=== PATIENT | male | born 1945 | race Caucasian/White ===

== ENCOUNTER 2018-03-09 09:44 | Observation (INO) | payer MEDICARE ==
--- NOTE | 2018-03-09 11:00 | PDOC.FPRHP ---
- History of Present Illness Chief Complaint: syncope, CP, SOB History of Present Illness: 72 yo M w/ PMH of Parkinson's, HLD and previous dx of HTN and DMII presentes for evaluation of syncopal episode at home. Pt reports last evening he was "not feeling well" and urinating frequently. He had associated SOB and some intermittent left sided chest pain w/o radiation. Reports he went to the restroom and the next thing he recalls was waking up on the bathroom floor. Denies loss of bowel or bladder function. Does report he has had some expressive aphasia since the episode and he was repeatedly telling his "we need to go home" after the incident although they were already at home. He denies fever, chills, cough, pleurisy, nvdc, recurrent dizziness/ lightheadedness and changes in vision, denies weakness, numbness and tingling. Of note, pt recently had an MRI at the [facility] in [place] which showed a history of "mini-strokes." He currently denies cp, sob and any focal neuro deficit. ED Course: 81mg aspirin x4 - Allergies/Adverse Reactions Allergies Allergy/AdvReac Type Severity Reaction Status Date / Time No Known Allergies Allergy Verified 03/09/18 16:02 - Home Medications Medication Instructions Recorded Confirmed Type Aspirin [Aspir-Low] 81 mg PO DAILY 03/09/18 03/09/18 History Carbidopa/Levodopa 2 tablet PO QID 03/09/18 03/09/18 History [Carbidopa-Levodopa 10-100 Tab] Cyanocobalamin (Vitamin B-12) 2,500 mcg PO Q7DAYS 03/09/18 03/09/18 History [Vitamin B12] Entacapone 200 mg PO QID 03/09/18 03/09/18 History Melatonin 5 mg PO DAILY 03/09/18 03/09/18 History Omeprazole 20 mg PO DAILY 03/09/18 03/09/18 History PARoxetine Mesylate [Pexeva] 40 mg PO DAILY 03/09/18 03/09/18 History Selegiline HCl [Eldepryl] 5 mg PO BID 03/09/18 03/09/18 History Simvastatin 40 mg PO HS 03/09/18 03/09/18 History Tamsulosin HCl [Flomax] 0.4 mg PO HS 03/09/18 03/09/18 History - History PMHx: Parkinsons, HLD, BPH, prior DMII, HTN PSHx: None FHx: Denies CV disease in parents and siblings Social: Denies alcohol, tobacco and drug use - Review of Systems General: denies: fever/chills, weight/appetite/sleep changes Eyes: reports: vision changes. denies: eye pain ENT: denies: nasal congestion, rhinorrhea Respiratory: reports: shortness of breath. denies: cough, congestion, exercise intolerance Cardiovascular: reports: chest pain, edema. denies: palpitation, paroxysmal nocturnal dyspnea, orthopnea Gastrointestinal: denies: nausea, vomiting, diarrhea, constipation, abdominal pain Genitourinary: reports: polyuria. denies: incontinence, dysuria Skin: denies: rashes, lesions Musculoskeletal: denies: pain, tenderness, arthritis/arthralgias Neurological: reports: syncope. denies: numbness, seizure, weakness Psychological: denies: anxiety - Vital signs BP: 124/92 HR: 76 RR: 16 Tmax: 98.4 Pox: 99% on RA Wt: 89Kg - Physical Exam Constitutional: NAD, awake, alert and oriented HEENT: normocephalic and atraumatic, PERRLA, no scleral icterus, grossly normal vision, grossly normal hearing, MMM, oropharynx clear Neck: supple, FROM, trachea midline, no LAD, no JVD, no thyromegaly Chest: no-tender to palpation Heart: RRR, normal S1/S2, no murmurs/rubs/gallops, pulses present, no edema Lungs: CTAB, no respiratory distress, good air movement, no rales/rhonchi, no wheezing, no retractions Abdomen: soft, non-tender, bowel sounds present, no masses/distention, no hernias Musculoskeletal: normal structure, normal tone, ROM grossly normal Neurological: no focal deficit, CN II-XII intact, normal sensation -Neurological: delayed speech w/ mild expressive aphasia Skin: no rash/lesions, good turgor, capillary refill <2 seconds Heme/Lymphatic: no unusual bruising or bleeding, no purpura Psychiatric: normal mood and affect FMR H&P: Results - EKG Interpretation EKG: NSR rate 72 - Radiology Interpretation Chest x-ray Status: report reviewed by me (Rt pleural effusion w/ bibasilar opacities) FMR H&P: A/P - Problem List (1) Syncope Current Visit: Yes Status: Acute Code(s): R55 - SYNCOPE AND COLLAPSE Assessment and Plan: (2) Atypical chest pain Current Visit: Yes Status: Acute Code(s): R07.89 - OTHER CHEST PAIN (3) Polyuria Current Visit: Yes Status: Acute Code(s): R35.8 - OTHER POLYURIA (4) Hypokalemia Current Visit: Yes Status: Acute Code(s): E87.6 - HYPOKALEMIA (5) HLD (hyperlipidemia) Current Visit: Yes Status: Acute Code(s): E78.5 - HYPERLIPIDEMIA, UNSPECIFIED (6) Parkinson disease Current Visit: Yes Status: Acute Code(s): G20 - PARKINSON'S DISEASE (7) BPH (benign prostatic hyperplasia) Current Visit: Yes Status: Acute Code(s): N40.0 - BENIGN PROSTATIC HYPERPLASIA WITHOUT LOWER URINRY TRACT SYMP - Plan 1) Syncope: - Admit tele - Given new report of difficulty "finding words" and delayed speech pattern, will get non con ct head and if negative for intracranial bleed get cta head and neck, currently no focal deficits aside from speech pattern - with subjective h/o "mini-strokes" on previous imaging will monitor on tele, possibility of paroxysmal fib/flutter causing syncopal episodes - am stress and echo - check mag, tsh, replace K+ - lovenox if negative 2) Atypical chest pain: - trend troponins X3 - initial EKG and cardiacs negative - will monitor on tele - am stress and echo - NPO @ midnight 3) Expressive aphasia: - given syncopal episode and new onset, will order head/neck imaging 4) Polyuria - given h/o BPH and syncopal, will check UA to r/o UTI 5)Hypokalemia: -replace, check mag 6) HLD: - continue statin 7) BPH: - resume home meds 8) Parkinson's -home meds Dispo: Stable, will obs and continue initial workup. PCP: City call admission Disposition/LOS: stable, </= 2 days FMR H&P: Upper Level - Plan Date/Time: 03/09/18 1055 I, [], have evaluated this patient and agree with findings/plan as outlined by event marketing intern resident. Pertinent changes/additions are listed here. Attending Addendum - Attending Addendum Date/Time: 03/09/182006 I personally evaluated the patient at 1645 and discussed the management with Dr. Corbett. H&P repeated by me. I agree with the History, Examination, Assessment and Plan documented above with any addition or exceptions noted below. 72 y/o WM with PMH parkinson's, HLD, diet controlled DM and HTN, and BPH who presented after he had a syncopal event overnight. Per his report he had to go urinate every 15-30 minutes overnight and progressively because more weak and "dizzy". He describes the dizziness as balance issue and closing in. No vertigo. He then fell with this syncopal event. States he was only out a few seconds. Denied palpatations, headache, loss of bowel or bladder. He did endorse some left sided chest pressure with associated shortness of breath. No radiation. Per review of records, his states he was struggling to find words and a little confused so they went to ER. At this time I am seeing him he feels well without complaint and asking to go home. VSS Neck: no carotid bruits Heart: normal s1/s2 no m,g,r Lungs: ctab Ext: no c/c/e Neuro: fluent and appropriate speech. No focal neuro deficits. Labs and imaging reports reviewed. 1) Syncope- obs to tele. Stress completed and negative. Continue tele to r/o arrythmia. No sign of CVA on CT scan and no focal neuro deficits. Continue ASA and statin daily. ECHO ordered and pending 2) 50% R carotid stenosis- this does not appear to be the source of his dizziness. Will need serial o/p follow-up 3) HLD- check FLP 4) BPH- continue home meds
[2018-03-09 11:31] LABS: Troponin I 0.011 ng/mL (< 0.028)
[2018-03-09] MEDS ORDERED: Acetaminophen 325 MG TAB PO PRN (11:34)
[2018-03-09] MEDS ORDERED: Ondansetron ODT 4 MG TAB PO PRN (11:34)
[2018-03-09] MEDS ORDERED: Bisacodyl 5 MG TAB PO PRN (11:34)
[2018-03-09] MEDS ORDERED: Ondansetron HCl/PF 4 MG/2 ML Vial IVP PRN (11:34)
[2018-03-09] MEDS ORDERED: hydrALAZINE 20 MG/ML VIAL SLOW IVP PRN (11:35)
[2018-03-09] MEDS ORDERED: Nitroglycerin 0.4 MG TAB (25 Tab Bottle) PO PRN (11:35)
--- NOTE | 2018-03-09 11:51 | CT ---
CT OF HEAD NONCONTRAST: Indication: Pain. FINDINGS: There is ventriculomegaly, mass effect, midline shift, or acute intracranial hemorrhage. Mild chronic ischemic disease is present. Imaged paranasal sinuses reveal no fluid levels. IMPRESSION: No acute intracranial abnormality. POS: [facility]
[2018-03-09] MEDS ORDERED: Potassium Chloride 20 MEQ TAB PO SCH ×2 (12:00→16:30)
--- NOTE | 2018-03-09 12:50 | CT ---
CT ARTERIOGRAM NECK WITH IV CONTRAST AND 3D MIP IMAGING CT ARTERIOGRAM HEAD WITH IV CONTRAST AND 3D MIP IMAGING: History: Syncope. Aphasia. FINDINGS: Normal branching of the great vessels at the aortic arch with mild arterial calcification. Good flow into each carotid and vertebral system. At the right carotid bifurcation, there is thick calcification and a short segment focus of approxima tely 50% stenosis at the origin of the ICA. Good flow more distally. On the left mild calcification at the aortic bifurcation without significant stenosis. [place] of [place] is intact. Arterial calcification intracranially. No focal filling defect or aneurys m. IMPRESSION: Atherosclerosis. Focal areas of approximately 50% stenosis at the origin of the right internal caroti d artery. No acute intracranial abnormalities are demonstrated. POS: [facility]
[2018-03-09] MEDS ORDERED: Iopamidol-M 200 41% 20 ML VIAL ONE (12:57)
[2018-03-09] MEDS ORDERED: ADENOSINE 60 MG/20 ML VIAL ONE (13:08)
[2018-03-09 15:31] LABS: Troponin I Less than 0.010 ng/mL (< 0.028)
[2018-03-09 15:47] VITALS: BMI 28.8
[2018-03-09] MEDS: Carbidopa/Levodopa 10-100 mg Tablet PO SCH ×3 (16:23→21:46)
--- NOTE | 2018-03-09 17:53 | NM ---
CARDIAC SPECT: CLINICAL HISTORY: 72-year-old male with chest pain, hypertension, smoker. TECHNIQUE: A myocardial perfusion scan was performed using the single isotope one day protocol with technetium-9 9m sestamibi. 11 mCi were injected intravenously for the rest exam followed by 31 mCi for the stress exam. Pharmacologic stress with Adenosine was monitored and interpreted by Dr. Phillip. FINDINGS: Homogeneous tracer distribution is seen in the myocardial segments on stress and rest images without fixed or reversible defects. GATED SPECT LVEF: 57%. WALL MOTION EXAM: Normal. IMPRESSION: Normal myocardial perfusion scan. POS: [facility]
[2018-03-09] MEDS ORDERED: Melatonin 3 MG TAB PO SCH (21:00)
[2018-03-09] MEDS ORDERED: Atorvastatin Calcium 20 MG TAB PO SCH (21:00)
[2018-03-09 22:13] LABS: Bilirubin Negative (Negative); Blood, Urine Negative (Negative); Clarity CLEAR (Clear); Glucose, Urine (Dipstick) Negative (Negative); Leukocyte Negative (Negative); Nitrite Negative (Negative); Protein, Urine (Dipstick) Negative (Neg-Trace); Specific Gravity, Urine 1.009 (1.002-1.036); Urobilinogen 0.2 mg/dL (0.2-1.0)
[2018-03-09 22:16] LABS: Bacteria/HPF None Seen HPF (None Seen); Hyaline Casts/LPF 0-3 HYALINE CAST LPF (0-3 Hyaline); RBC/HPF 0-3 HPF (0-3); Squamous Epithelial None Seen HPF (0-3); WBC/HPF None Seen HPF (0-3)
[2018-03-10 04:27] LABS: #Eosinphils 0.1 thou/uL (0.0-0.7); #Monocytes 0.6 thou/uL (0.11-0.59); #Neutrophils 3.4 thou/uL (1.40-6.50); %Basophils 0.6 % (0.0-1.0); %Lymphocytes 32.7 % (21.0-51.0); %Monocytes 9.6 % (0.0-10.0); %Neutrophils 55.1 % (42.0-75.0); Hemoglobin 12.4 g/dL (14.0-18.0); Mean Corpuscular HGB CONC 33.7 g/dL (32.0-36.0); Mean Corpuscular Hemoglobin 32.2 pg (27.0-31.0); Mean Corpuscular Volume 95.6 fL (78.0-98.0); Mean Platelet Volume 7.6 fL (7.4-10.4); Platelet Count 169 thou/uL (130-400); RBC Distribution Width 11.6 % (11.5-14.5); Red Blood Cell (RBC) Count 3.83 mill/uL (4.70-6.10); White Blood Cell (WBC) Count 6.1 thou/uL (4.8-10.8)
[2018-03-10 04:53] LABS: Anion Gap 12 mmol/L (10-20); BUN (Urea Nitrogen) 12 mg/dL (8.4-25.7); Calc. Creatinine Clearance 74 mL/min (70-130); Calcium 9.5 mg/dL (7.8-10.44); Carbon Dioxide 22 mmol/L (23-31); Cardiac Risk 2.7 (Less than 4.5); Chloride 108 mmol/L (98-107); Cholesterol 123 mg/dl (< 200 Desired); Estimated GFR-MDRD 62; Glucose 108 mg/dL (83-110); HDL Cholesterol 45 mg/dL (>60 Neg Risk); LDL Cholesterol, Calculated 60 mg/dL; Potassium 4.1 mmol/L (3.5-5.1); Sodium 138 mmol/L (136-145); Triglycerides 92 mg/dL (Less than 150)
--- NOTE | 2018-03-10 07:23 | PDOC.FM ---
- Subjective Subjective: No acute events overnight. Pt reports resolution of SOB. Denies CP. No syncopal episodes overnight. - Objective Vital Signs & Weight: Vital Signs (12 hours) Temp Pulse Resp BP Pulse Ox 03/10/18 03:02 97.6 F 66 20 137/79 97 03/09/18 23:20 97.9 F 68 20 125/67 94 L 03/09/18 20:01 99.3 F 72 20 03/09/18 19:56 99.3 F 72 20 145/75 H 96 Weight Weight 91.172 kg I&O: 03/09/18 03/10/18 03/11/18 06:59 06:59 06:59 Intake Total 600 Output Total 600 Balance 0 Result Diagrams: 03/10/18 04:12 03/10/18 04:12 <William Corbett - Last Filed: 03/10/18 07:20> - Objective Vital Signs & Weight: Vital Signs (12 hours) Temp Pulse Resp BP Pulse Ox 03/10/18 07:58 98.5 F 70 20 179/89 H 96 03/10/18 03:02 97.6 F 66 20 137/79 97 03/09/18 23:20 97.9 F 68 20 125/67 94 L Weight Weight 91.172 kg I&O: 03/09/18 03/10/18 03/11/18 06:59 06:59 06:59 Intake Total 600 Output Total 600 Balance 0 Result Diagrams: 03/10/18 04:12 03/10/18 04:12 <Miguel Angel Reaves - Last Filed: 03/10/18 09:39> Phys Exam - Physical Examination Constitutional: NAD HEENT: PERRLA, sclera anicteric Neck: no nodes, no JVD Respiratory: no wheezing, no rales, no rhonchi, clear to auscultation bilateral Cardiovascular: RRR, no significant murmur, no rub Gastrointestinal: soft, non-tender, no distention, positive bowel sounds Musculoskeletal: no edema, pulses present Neurological: non-focal, moves all 4 limbs <William Corbett - Last Filed: 03/10/18 07:20> Dx/Plan (1) Syncope Code(s): R55 - SYNCOPE AND COLLAPSE Status: Acute (2) Atypical chest pain Code(s): R07.89 - OTHER CHEST PAIN Status: Acute (3) Polyuria Code(s): R35.8 - OTHER POLYURIA Status: Acute (4) Hypokalemia Code(s): E87.6 - HYPOKALEMIA Status: Acute (5) HLD (hyperlipidemia) Code(s): E78.5 - HYPERLIPIDEMIA, UNSPECIFIED Status: Acute (6) Parkinson disease Code(s): G20 - PARKINSON'S DISEASE Status: Acute (7) BPH (benign prostatic hyperplasia) Code(s): N40.0 - BENIGN PROSTATIC HYPERPLASIA WITHOUT LOWER URINRY TRACT SYMP Status: Acute - Plan Plan: 1) Syncope: - neg ct head and neck - echo pending - 50% stenosis rt ICA, recommend OP f/u. Do not believe this to be cause of syncope - NSR on tele overnight - med side effect vs vasovagal vs cardiogenic vs neurogenic - erwin stable for DC to home today pending echo 2) Atypical chest pain: - toponins negative - echo pending - negative stress 3) Expressive aphasia: resolved - likely stable for dc to home today 4) Polyuria - UA negative - stable for dc to home 5)Hypokalemia: -replace, check mag - resolved 6) HLD: - continue statin 7) BPH: - resume home meds 8) Parkinson's -home meds Dispo: Erwin stable for DC to home today pending Echo. Otherwise stable and workup negative thus far. <William Corbett - Last Filed: 03/10/18 07:20> Attending Addendum - Attending Addendum Date/Time: 03/10/1837 I personally evaluated the patient and discussed the management with Dr. Corbett. I agree with the History, Examination, Assessment and Plan documented above with any addition or exceptions noted below. Patient doing well and feels at baseline. His cardiovascular workup for cause of syncope has been negative thus far and no events on telemetry. Will check orthostatics, but currently asymptomatic. Echo pending. His parkinsonian medications can cause symptoms similar to what he is experiencing and will recommend that he follow up and discuss with neurology if his workup finalizes as negative. Should be stable for discharge later today after obtaining TTE. <Miguel Angel Reaves - Last Filed: 03/10/18 09:39>
[2018-03-10 07:59] VITALS: TEMP 98.5
[2018-03-10] MEDS: Carbidopa/Levodopa 10-100 mg Tablet PO SCH (08:07)
[2018-03-10] MEDS ORDERED: Entacapone 200 mg Tablet PO SCH (09:00)
[2018-03-10] MEDS ORDERED: Enoxaparin Sodium 40 MG/0.4 ML SYRINGE SC SCH (09:00)
[2018-03-10] MEDS ORDERED: Finasteride 5 MG TAB PO SCH (09:00)
[2018-03-10] MEDS ORDERED: Aspirin 325 MG TAB PO SCH (09:00)
[2018-03-10] MEDS ORDERED: PAROXETINE MESYLATE PO SCH (09:00)
--- NOTE | 2018-03-10 10:45 | CT ---
CT ARTERIOGRAM NECK WITH IV CONTRAST AND 3D MIP IMAGING CT ARTERIOGRAM HEAD WITH IV CONTRAST AND 3D MIP IMAGING: History: Syncope. Aphasia. FINDINGS: Normal branching of the great vessels at the aortic arch with mild arterial calcification. Good flow into each carotid and vertebral system. At the right carotid bifurcation, there is thick calcification and a short segment focus of approxima tely 50% stenosis at the origin of the ICA. Good flow more distally. On the left mild calcification at the aortic bifurcation without significant stenosis. [place] of [place] is intact. Arterial calcification intracranially. No focal filling defect or aneurys m. IMPRESSION: Atherosclerosis. Focal areas of approximately 50% stenosis at the origin of the right internal caroti d artery. No acute intracranial abnormalities are demonstrated.
[2018-03-10 11:32] VITALS: BP 131/77
--- NOTE | 2018-03-11 12:53 | DIS-2 ---
DATE OF SERVICE: 03/10/2018 LOCATION: [facility] in [place], [place]. DATE OF ADMISSION: 03/09/2018 DATE OF DISCHARGE: 03/10/2018 RESIDENT PHYSICIAN: Dr. William Corbett. ADMITTING ATTENDING: Dr. Nancy Damon. DISCHARGE ATTENDING: Dr. Miguel Angel Reaves. CONSULTATIONS: None. PROCEDURES: 1. Brain CT done on 03/09/2018 showed no acute intracranial abnormality. 2. CT angiogram of the brain showed atherosclerosis. Focal areas are approximately 50% stenosis at the origin of the right internal carotid artery. No acute intracranial abnormalities are demonstrate d. 3. Echocardiogram done on 03/10/2018 showed an EF of 50% to 55%, mildly dilated left atrium, left ve ntricular size normal, mild mitral regurgitation and mild tricuspid regurgitation. PRIMARY DIAGNOSES: 1. Syncope. 2. Atypical chest pain. SECONDARY DIAGNOSES: 1. Polyuria. 2. Benign prostatic hypertrophy. 3. Hyperlipidemia. 4. Parkinson disease. DISCHARGE MEDICATIONS: 1. Aspirin 81 mg daily. 2. Carbidopa/levodopa 10-100 mg 2 tablets p.o. q.i.d. 3. Vitamin B12 of 2500 mcg p.o. daily. 4. Entacapone 200 mg p.o. q.i.d. 5. Melatonin 5 mg p.o. daily. 6. Omeprazole 20 mg p.o. daily. 7. Paroxetine 40 mg p.o. daily. 8. Selegiline 5 mg p.o. b.i.d. 9. Simvastatin 40 mg p.o. at bedtime. 10. Flomax 0.4 mg p.o. at bedtime. DISCONTINUED MEDICATIONS: None. HISTORY OF PRESENT ILLNESS AND HOSPITAL COURSE: The patient is a 72-year-old male with past medical history of Parkinson's disease, hypertension, hyperlipidemia, BPH, who initially presented to an [facility] ED after experiencing a syncopal episode with unknown downtime. The patient reports that his wif e was helping him after and she reported that he was not making any sense and additionally, the patie nt complained of difficulty finding words after the initial syncopal episode. He denied any loss of bowel or bladder function and at the time of initial presentation denied any focal motor deficits; ho wever, he did report some expressive aphasia. Because of this and the unknown downtime in addition t o the altered mental status after initial syncopal episode, brain imaging was performed which did not show any acute abnormality. The patient's cardiac enzymes were additionally trended and those were negative throughout his hospitalization. His laboratory results were all within normal limits except for hemoglobin which was 12.4, hematocrit 36.6. Urinalysis was done as well secondary to patient's complaint of polyuria; however, urinalysis was negative for any signs or symptoms of infection. Ulti heatherly, the patient was admitted for a syncopal episode and worked up for both cardiogenic and neurog enic sources, all of which were negative. It was noted that the patient is on maximum dose of both e ntacapone and carbidopa/levodopa and this was thought to be a possible cause of his syncopal episode. The patient was instructed to discuss additional medical management with his PCP and neurologist fo llowing discharge from the hospital. Overall, the patient had an uncomplicated hospital course and b y the time he arrived to the ED, his symptoms had completely resolved. DISPOSITION: The patient left the hospital in stable condition. DISCHARGE INSTRUCTIONS: 1. Location: Home. 2. Diet: Heart healthy. 3. Activity: Ad marco. 4. Followup: Follow up with primary care provider in 7-10 days. Follow up with Neurology in 2-3 we eks following discharge.
[2018-03-16] MEDS ORDERED: Ergocalciferol 1.25 MG(50,000 UNITS) CAP PO SCH (09:00)
== END 2018-03-10 14:00 | disposition home or self-care (01) ==
LOC: ERS 09:44 → 2SE 10:30
PROVIDERS: ADMIT Student in an Organized Health Care Education/Training Program; ATTEND Student in an Organized Health Care Education/Training Program
DX: R55 Syncope and collapse (principal); R07.89 Other chest pain; N40.1 Benign prostatic hyperplasia with lower urinary tract symptoms; R35.8 Other polyuria; E78.5 Hyperlipidemia, unspecified; G20 Parkinson's disease; I10 Essential (primary) hypertension; E11.9 Type 2 diabetes mellitus without complications; E87.6 Hypokalemia; Z79.82 Long term (current) use of aspirin; Z79.899 Other long term (current) drug therapy
CPT/HCPCS: 70450; 70496; 70498; 78452; 80048; 80061; 81001; 82962 ×2; 83735; 84443; 84484; 85025; 93017; 93306; 94760 ×2; 96372; 97139 ×3; 99285; A9500; G0378 ×2; G8987; G8988; G8989; 36415; 36416; G9162-GN-CI; G9163-GN-CI; J0153

== ENCOUNTER 2022-07-16 22:24 | Inpatient (IN) | payer MEDICARE, OTHER ==
[2022-07-17] MEDS ORDERED: niCARdipine 25 MG/10 ML VIAL ONE (00:28)
[2022-07-17] MEDS ORDERED: Ondansetron PF 4 MG/2 ML Vial IVP PRN (00:54)
[2022-07-17] MEDS ORDERED: Lisinopril 10 MG TAB PO SCH (01:00)
[2022-07-17] MEDS ORDERED: niCARdipine 25 MG in Sodium Chloride 0.9% 250 ML 250 ML IVPB SCH (01:00)
[2022-07-17] MEDS ORDERED: Lisinopril 10 MG TAB ONE ×2 (01:17→09:13)
[2022-07-17 01:46] LABS: SARS-CoV-2 NAA Rapid Test Not Detected (NotDetected)
[2022-07-17] MEDS ORDERED: Polyethylene Glycol 3350 17 GM Packet PO PRN (07:57)
[2022-07-17 07:59] LABS: #Lymphocytes 1.5 thou/uL (1.20-3.40); #Monocytes 0.8 thou/uL (0.11-0.59); #Neutrophils 5.3 thou/uL (1.40-6.50); %Basophils 0.2 % (0.0-1.0); %Eosinophils 0.5 % (0.0-10.0); %Lymphocytes 19.7 % (21.0-51.0); %Monocytes 10.1 % (0.0-10.0); %Neutrophils 69.4 % (42.0-75.0); Hemoglobin 12.3 g/dL (14.0-18.0); Mean Corpuscular HGB CONC 31.4 g/dL (32.0-36.0); Mean Corpuscular Hemoglobin 29.8 pg (27.0-31.0); Mean Corpuscular Volume 94.9 fl (78.0-98.0); Mean Platelet Volume 7.9 fL (7.4-10.4); Platelet Count 238 10x3/uL (130-400); RBC Distribution Width 12.8 % (11.5-14.5); Red Blood Cell (RBC) Count 4.13 mill/uL (4.70-6.10); White Blood Cell (WBC) Count 7.6 10x3/uL (4.8-10.8)
[2022-07-17 08:19] LABS: Anion Gap 14 mmol/L (10-20); BUN (Urea Nitrogen) 16 mg/dL (8.4-25.7); Calc. Creatinine Clearance 0 mL/min (70-130); Calcium 9.6 mg/dL (7.8-10.44); Carbon Dioxide 26 mmol/L (23-31); Chloride 101 mmol/L (98-107); Estimated GFR 75; Glucose 120 mg/dL (83-110); Potassium 3.9 mmol/L (3.5-5.1); Sodium 137 mmol/L (136-145)
[2022-07-17] MEDS ORDERED: Carbidopa/Levodopa 10-100 mg Tablet PO SCH (09:00)
[2022-07-17] MEDS: Carbidopa/Levodopa 10-100 mg Tablet PO SCH ×4 (09:05→21:52)
[2022-07-17] MEDS: Finasteride 5 MG TAB PO SCH (09:06)
[2022-07-17] MEDS ORDERED: Aspirin Chewable 81 MG TAB ONE (09:13)
[2022-07-17] MEDS: Aspirin 81 mg Enteric Coated Tablet PO SCH (09:36)
[2022-07-17] MEDS: Cyanocobalamin (Vitamin B-12) 1,000 MCG TAB PO SCH (09:37)
[2022-07-17] MEDS: Entacapone 200 mg Tablet PO SCH ×4 (09:37→21:52)
[2022-07-17] MEDS: Lisinopril 10 MG TAB PO SCH (09:38)
[2022-07-17] MEDS: PARoxetine 20 MG TAB PO SCH (09:40)
[2022-07-17] MEDS ORDERED: traMADol HCl 50 MG TAB PO PRN (11:06)
[2022-07-17] MEDS ORDERED: Fleet Enema 133 ML BOT PR SCH (13:00)
[2022-07-17] MEDS ORDERED: Amlodipine 5 MG TAB PO SCH (13:04)
[2022-07-17 17:01] VITALS: BMI 22.6
[2022-07-17] MEDS ORDERED: Atorvastatin Calcium 10 MG TAB PO SCH (21:00)
[2022-07-17] MEDS: Atorvastatin Calcium 20 MG TAB PO SCH (21:52)
[2022-07-17] MEDS: Tamsulosin HCl 0.4 MG CAP PO SCH (21:52)
[2022-07-18 04:31] LABS: #Eosinphils 0.1 thou/uL (0.0-0.7); #Lymphocytes 1.7 thou/uL (1.20-3.40); #Neutrophils 5.9 thou/uL (1.40-6.50); %Basophils 0.6 % (0.0-1.0); %Eosinophils 0.7 % (0.0-10.0); %Monocytes 11.1 % (0.0-10.0); %Neutrophils 67.7 % (42.0-75.0); Hemoglobin 12.1 g/dL (14.0-18.0); Mean Corpuscular HGB CONC 32.4 g/dL (32.0-36.0); Mean Corpuscular Hemoglobin 31.1 pg (27.0-31.0); Mean Platelet Volume 7.8 fL (7.4-10.4); Platelet Count 236 10x3/uL (130-400); RBC Distribution Width 12.8 % (11.5-14.5); White Blood Cell (WBC) Count 8.7 10x3/uL (4.8-10.8)
[2022-07-18 04:55] LABS: Anion Gap 11 mmol/L (10-20); BUN (Urea Nitrogen) 25 mg/dL (8.4-25.7); Calc. Creatinine Clearance 51 mL/min (70-130); Calcium 9.1 mg/dL (7.8-10.44); Carbon Dioxide 28 mmol/L (23-31); Chloride 101 mmol/L (98-107); Estimated GFR 60; Glucose 121 mg/dL (83-110); Potassium 3.6 mmol/L (3.5-5.1); Sodium 136 mmol/L (136-145)
[2022-07-18] MEDS: Carbidopa/Levodopa 10-100 mg Tablet PO SCH ×4 (09:58→20:42)
[2022-07-18] MEDS: Aspirin 81 mg Enteric Coated Tablet PO SCH (09:59)
[2022-07-18] MEDS: Entacapone 200 mg Tablet PO SCH ×4 (09:59→20:41)
[2022-07-18] MEDS: Amlodipine 5 MG TAB PO SCH (10:00)
[2022-07-18] MEDS: Lisinopril 10 MG TAB PO SCH (10:01)
[2022-07-18] MEDS: PARoxetine 20 MG TAB PO SCH (10:02)
[2022-07-18] MEDS: Finasteride 5 MG TAB PO SCH (10:03)
[2022-07-18] MEDS ORDERED: CEFAZOLIN 2 GM in Sodium Chloride 0.9% 100 ML IVPB SCH (11:00)
[2022-07-18] MEDS ORDERED: Enoxaparin Sodium 40 MG/0.4 ML SYRINGE SC SCH (12:00)
[2022-07-18] MEDS ORDERED: hydrALAZINE 25 MG TAB PO SCH (12:15)
[2022-07-18] MEDS: Tamsulosin HCl 0.4 MG CAP PO SCH (20:41)
[2022-07-18] MEDS: Acetaminophen 325 MG TAB PO PRN (20:42)
[2022-07-18] MEDS: Atorvastatin Calcium 20 MG TAB PO SCH (20:42)
[2022-07-18] MEDS: hydrALAZINE 25 MG TAB PO SCH (20:42)
[2022-07-19] MEDS: PARoxetine 20 MG TAB PO SCH (08:50)
[2022-07-19] MEDS: Entacapone 200 mg Tablet PO SCH ×4 (08:50→20:13)
[2022-07-19] MEDS: Amlodipine 5 MG TAB PO SCH (08:50)
[2022-07-19] MEDS: Aspirin 81 mg Enteric Coated Tablet PO SCH (08:50)
[2022-07-19] MEDS: Lisinopril 10 MG TAB PO SCH (08:51)
[2022-07-19] MEDS: Finasteride 5 MG TAB PO SCH (08:51)
[2022-07-19] MEDS: hydrALAZINE 25 MG TAB PO SCH ×2 (08:52→21:02)
[2022-07-19] MEDS: Carbidopa/Levodopa 10-100 mg Tablet PO SCH ×4 (08:53→20:18)
[2022-07-19] MEDS ORDERED: Enoxaparin Sodium 40 MG/0.4 ML SYRINGE SC SCH ×2 (09:00→11:30)
[2022-07-19 10:04] LABS: #Eosinphils 0.1 thou/uL (0.0-0.7); #Lymphocytes 1.6 thou/uL (1.20-3.40); #Monocytes 0.6 thou/uL (0.11-0.59); #Neutrophils 4.1 thou/uL (1.40-6.50); %Basophils 0.1 % (0.0-1.0); %Eosinophils 1.2 % (0.0-10.0); %Lymphocytes 25.6 % (21.0-51.0); %Neutrophils 63.1 % (42.0-75.0); Hemoglobin 12.3 g/dL (14.0-18.0); Mean Corpuscular HGB CONC 32.4 g/dL (32.0-36.0); Mean Corpuscular Hemoglobin 31.1 pg (27.0-31.0); Mean Platelet Volume 7.9 fL (7.4-10.4); Platelet Count 203 10x3/uL (130-400); Red Blood Cell (RBC) Count 3.95 mill/uL (4.70-6.10); White Blood Cell (WBC) Count 6.4 10x3/uL (4.8-10.8)
[2022-07-19 10:39] LABS: Anion Gap 11 mmol/L (10-20); BUN (Urea Nitrogen) 23 mg/dL (8.4-25.7); Calc. Creatinine Clearance 58 mL/min (70-130); Calcium 9.1 mg/dL (7.8-10.44); Carbon Dioxide 26 mmol/L (23-31); Chloride 102 mmol/L (98-107); Estimated GFR 70; Glucose 146 mg/dL (83-110); Potassium 4.1 mmol/L (3.5-5.1); Sodium 135 mmol/L (136-145)
[2022-07-19] MEDS ORDERED: Fleet Enema 133 ML BOT PR SCH (11:15)
[2022-07-19] MEDS: Atorvastatin Calcium 20 MG TAB PO SCH (20:12)
[2022-07-19] MEDS: Acetaminophen 325 MG TAB PO PRN (20:12)
[2022-07-19] MEDS: Tamsulosin HCl 0.4 MG CAP PO SCH (20:12)
[2022-07-20] MEDS: Acetaminophen 325 MG TAB PO PRN ×2 (03:35→20:35)
[2022-07-20] MEDS: Amlodipine 5 MG TAB PO SCH (07:59)
[2022-07-20] MEDS: Carbidopa/Levodopa 10-100 mg Tablet PO SCH ×4 (07:59→20:40)
[2022-07-20] MEDS: Finasteride 5 MG TAB PO SCH (08:00)
[2022-07-20] MEDS: PARoxetine 20 MG TAB PO SCH (08:00)
[2022-07-20] MEDS: Aspirin 81 mg Enteric Coated Tablet PO SCH (08:00)
[2022-07-20] MEDS: Entacapone 200 mg Tablet PO SCH ×4 (08:00→20:35)
[2022-07-20] MEDS: Lisinopril 10 MG TAB PO SCH (08:00)
[2022-07-20] MEDS ORDERED: Enoxaparin Sodium 40 MG/0.4 ML SYRINGE SC SCH (09:00)
[2022-07-20] MEDS: hydrALAZINE 25 MG TAB PO SCH ×2 (11:48→21:41)
[2022-07-20] MEDS: Atorvastatin Calcium 20 MG TAB PO SCH (20:35)
[2022-07-20] MEDS: Tamsulosin HCl 0.4 MG CAP PO SCH (20:36)
[2022-07-21 06:32] LABS: #Eosinphils 0.1 thou/uL (0.0-0.7); #Lymphocytes 1.4 thou/uL (1.20-3.40); #Monocytes 0.6 thou/uL (0.11-0.59); #Neutrophils 2.8 thou/uL (1.40-6.50); %Basophils 0.4 % (0.0-1.0); %Eosinophils 2.5 % (0.0-10.0); %Lymphocytes 28.5 % (21.0-51.0); %Monocytes 12.6 % (0.0-10.0); Hemoglobin 11.8 g/dL (14.0-18.0); Mean Corpuscular HGB CONC 31.8 g/dL (32.0-36.0); Mean Corpuscular Hemoglobin 31.1 pg (27.0-31.0); Mean Corpuscular Volume 97.9 fl (78.0-98.0); Platelet Count 186 10x3/uL (130-400); RBC Distribution Width 12.9 % (11.5-14.5); White Blood Cell (WBC) Count 4.9 10x3/uL (4.8-10.8)
[2022-07-21 06:50] LABS: Anion Gap 10 mmol/L (10-20); BUN (Urea Nitrogen) 24 mg/dL (8.4-25.7); Calc. Creatinine Clearance 60 mL/min (70-130); Calcium 9.2 mg/dL (7.8-10.44); Carbon Dioxide 29 mmol/L (23-31); Chloride 103 mmol/L (98-107); Estimated GFR 73; Glucose 107 mg/dL (83-110); Potassium 4.2 mmol/L (3.5-5.1); Sodium 138 mmol/L (136-145)
[2022-07-21] MEDS: Carbidopa/Levodopa 10-100 mg Tablet PO SCH ×4 (08:06→21:07)
[2022-07-21] MEDS: Finasteride 5 MG TAB PO SCH (08:06)
[2022-07-21] MEDS: PARoxetine 20 MG TAB PO SCH (08:06)
[2022-07-21] MEDS: Entacapone 200 mg Tablet PO SCH ×4 (08:06→21:07)
[2022-07-21] MEDS: hydrALAZINE 25 MG TAB PO SCH ×2 (08:06→21:08)
[2022-07-21] MEDS: Aspirin 81 mg Enteric Coated Tablet PO SCH (08:06)
[2022-07-21] MEDS: Amlodipine 5 MG TAB PO SCH (08:07)
[2022-07-21] MEDS: Lisinopril 10 MG TAB PO SCH (08:07)
[2022-07-21] MEDS: Tamsulosin HCl 0.4 MG CAP PO SCH (21:07)
[2022-07-21] MEDS: Atorvastatin Calcium 20 MG TAB PO SCH (21:07)
[2022-07-22] MEDS ORDERED: CEFAZOLIN 2 GM in Sodium Chloride 0.9% 100 ML IVPB SCH (07:30)
[2022-07-22] MEDS ORDERED: Sodium Chloride 0.9% 100 ML ONE ×2 (08:00→09:11)
[2022-07-22] MEDS ORDERED: Tranexamic Acid 1,000 MG/10 ML VIAL ONE (08:00)
[2022-07-22] MEDS ORDERED: Vancomycin 1.5 GRAM/300 ML BAG 1.5 GM in Premix Bag 1 BAG IVPB SCH (08:00)
[2022-07-22] MEDS ORDERED: Vancomycin (BATCH) 1.5 GRAM/300 ML BAG ONE (08:01)
[2022-07-22] MEDS ORDERED: Midazolam HCl 2 mg/2 ml Vial ONE (08:24)
[2022-07-22] MEDS ORDERED: Ropivacaine 0.5% HCl/PF (150 MG/30 ML VIAL) ONE (08:25)
[2022-07-22] MEDS ORDERED: Fentanyl 100 MCG/2 ML VIAL ONE (08:31)
[2022-07-22] MEDS ORDERED: Bupivacaine PF 0.5% 30 ML VIAL ONE (08:59)
[2022-07-22] MEDS ORDERED: Fentanyl 250 MCG/5 ML VIAL ONE (09:08)
[2022-07-22] MEDS ORDERED: diphenhydrAMINE 25 MG CAP PO PRN (09:10)
[2022-07-22] MEDS ORDERED: Ondansetron PF 4 MG/2 ML Vial IVP PRN (09:10)
[2022-07-22] MEDS ORDERED: HYDROcodone/Acetaminophen 10/325 mg Tablet PO PRN (09:10)
[2022-07-22] MEDS ORDERED: traMADol HCl 50 MG TAB PO PRN ×2 (09:10)
[2022-07-22] MEDS ORDERED: Promethazine HCl 25 MG/ML VIAL IM PRN ×2 (09:10→10:19)
[2022-07-22] MEDS ORDERED: Acetaminophen 325 MG TAB PO PRN (09:10)
[2022-07-22] MEDS ORDERED: Zolpidem Tartrate 5 MG TAB PO PRN (09:10)
[2022-07-22] MEDS ORDERED: CEFAZOLIN 2 GM VIAL ONE (09:11)
[2022-07-22] MEDS ORDERED: PHENYLEPHRINE-NS 100 MCG/ML 10 ML SYRINGE ONE ×2 (09:31→09:34)
[2022-07-22] MEDS ORDERED: ePHEDrine 50 MG/ML VIAL ONE (09:34)
[2022-07-22] MEDS ORDERED: PROPOFOL 200 MG/20 ML VIAL ONE (09:34)
[2022-07-22] MEDS ORDERED: Calcium Chloride 1 GM/10 ML Abboject SYRINGE ONE (09:34)
[2022-07-22] MEDS ORDERED: Fentanyl 100 MCG/2 ML VIAL IV PRN (09:42)
[2022-07-22] MEDS ORDERED: Phenylephrine 10 MG/ML VIAL ONE (09:43)
[2022-07-22] MEDS ORDERED: Ropivacaine 0.2% 550 ML 550 ML NERVE BLCK SCH (09:45)
[2022-07-22] MEDS ORDERED: Tranexamic Acid 1,000 MG/10 ML VIAL IVP SCH (10:00)
[2022-07-22] MEDS ORDERED: Promethazine HCl 25 MG/ML VIAL IVPB PRN (10:19)
[2022-07-22] MEDS ORDERED: PACU-Morphine 4MG/ML VIAL SLOW IVP PRN (10:19)
[2022-07-22] MEDS: Carbidopa/Levodopa 10-100 mg Tablet PO SCH ×4 (12:05→20:46)
[2022-07-22] MEDS: Dextrose 5 %-0.45 % NaCl 1,000 ML IV SCH ×2 (12:05→21:52)
[2022-07-22] MEDS: Entacapone 200 mg Tablet PO SCH ×4 (12:05→21:52)
[2022-07-22] MEDS: Aspirin 81 mg Enteric Coated Tablet PO SCH ×2 (12:13→20:45)
[2022-07-22] MEDS: Finasteride 5 MG TAB PO SCH (12:27)
[2022-07-22] MEDS: Lisinopril 10 MG TAB PO SCH (12:27)
[2022-07-22] MEDS: hydrALAZINE 25 MG TAB PO SCH ×2 (12:27→20:46)
[2022-07-22] MEDS: PARoxetine 20 MG TAB PO SCH (12:27)
[2022-07-22] MEDS: Amlodipine 5 MG TAB PO SCH (12:27)
[2022-07-22] MEDS: Ketorolac Tromethamine 30 MG/ML VIAL IVP SCH ×2 (12:28→16:45)
[2022-07-22 12:51] LABS: #Eosinphils 0.1 thou/uL (0.0-0.7); #Lymphocytes 1.8 thou/uL (1.20-3.40); #Monocytes 0.6 thou/uL (0.11-0.59); #Neutrophils 4.3 thou/uL (1.40-6.50); %Basophils 0.7 % (0.0-1.0); %Eosinophils 1.3 % (0.0-10.0); %Lymphocytes 26.7 % (21.0-51.0); %Monocytes 8.2 % (0.0-10.0); %Neutrophils 63.1 % (42.0-75.0); Hemoglobin 11.9 g/dL (14.0-18.0); Mean Corpuscular HGB CONC 32.7 g/dL (32.0-36.0); Mean Corpuscular Hemoglobin 31.5 pg (27.0-31.0); Mean Corpuscular Volume 96.2 fl (78.0-98.0); Platelet Count 198 10x3/uL (130-400); RBC Distribution Width 12.6 % (11.5-14.5); Red Blood Cell (RBC) Count 3.79 mill/uL (4.70-6.10); White Blood Cell (WBC) Count 6.8 10x3/uL (4.8-10.8)
[2022-07-22 13:06] LABS: Anion Gap 11 mmol/L (10-20); BUN (Urea Nitrogen) 19 mg/dL (8.4-25.7); Calc. Creatinine Clearance 62 mL/min (70-130); Calcium 9.2 mg/dL (7.8-10.44); Carbon Dioxide 26 mmol/L (23-31); Chloride 102 mmol/L (98-107); Estimated GFR 76; Glucose 145 mg/dL (83-110); Potassium 4.2 mmol/L (3.5-5.1); Sodium 135 mmol/L (136-145)
[2022-07-22] MEDS: Ferrous Gluconate 324 MG TAB PO SCH (16:45)
[2022-07-22] MEDS: CEFAZOLIN 2 GM in Sodium Chloride 0.9% 100 ML IVPB SCH (16:52)
[2022-07-22] MEDS: HYDROcodone/Acetaminophen 10/325 mg Tablet PO PRN (20:47)
[2022-07-22] MEDS: Atorvastatin Calcium 20 MG TAB PO SCH (20:47)
[2022-07-22] MEDS: Tamsulosin HCl 0.4 MG CAP PO SCH (20:48)
[2022-07-22] MEDS: Senokot S 8.6-50 MG TAB PO SCH (21:00)
[2022-07-23] MEDS: Ketorolac Tromethamine 30 MG/ML VIAL IVP SCH ×4 (00:30→17:15)
[2022-07-23] MEDS: CEFAZOLIN 2 GM in Sodium Chloride 0.9% 100 ML IVPB SCH (00:32)
[2022-07-23 06:38] LABS: #Eosinphils 0.1 thou/uL (0.0-0.7); #Lymphocytes 1.4 thou/uL (1.20-3.40); #Monocytes 1.1 thou/uL (0.11-0.59); #Neutrophils 5.4 thou/uL (1.40-6.50); %Basophils 0.1 % (0.0-1.0); %Eosinophils 1.7 % (0.0-10.0); %Lymphocytes 17.3 % (21.0-51.0); %Monocytes 13.6 % (0.0-10.0); %Neutrophils 67.2 % (42.0-75.0); Hemoglobin 10.5 g/dL (14.0-18.0); Mean Corpuscular HGB CONC 31.7 g/dL (32.0-36.0); Mean Corpuscular Hemoglobin 30.9 pg (27.0-31.0); Mean Corpuscular Volume 97.4 fl (78.0-98.0); Mean Platelet Volume 8.2 fL (7.4-10.4); Platelet Count 165 10x3/uL (130-400); RBC Distribution Width 12.6 % (11.5-14.5); Red Blood Cell (RBC) Count 3.41 mill/uL (4.70-6.10)
[2022-07-23 06:56] LABS: Anion Gap 11 mmol/L (10-20); BUN (Urea Nitrogen) 25 mg/dL (8.4-25.7); Calc. Creatinine Clearance 66 mL/min (70-130); Calcium 8.7 mg/dL (7.8-10.44); Carbon Dioxide 28 mmol/L (23-31); Chloride 102 mmol/L (98-107); Estimated GFR 81; Glucose 122 mg/dL (83-110); Potassium 4.1 mmol/L (3.5-5.1); Sodium 137 mmol/L (136-145)
[2022-07-23] MEDS: Dextrose 5 %-0.45 % NaCl 1,000 ML IV SCH ×2 (07:29→15:36)
[2022-07-23] MEDS: Finasteride 5 MG TAB PO SCH ×2 (08:57→09:04)
[2022-07-23] MEDS: Entacapone 200 mg Tablet PO SCH ×4 (08:57→20:32)
[2022-07-23] MEDS: Ferrous Gluconate 324 MG TAB PO SCH ×2 (08:57→17:15)
[2022-07-23] MEDS: Multivitamin W/ Minerals 1 TAB PO SCH (08:57)
[2022-07-23] MEDS: Senokot S 8.6-50 MG TAB PO SCH ×2 (08:57→20:32)
[2022-07-23] MEDS: PARoxetine 20 MG TAB PO SCH (08:57)
[2022-07-23] MEDS: Aspirin 81 mg Enteric Coated Tablet PO SCH ×2 (08:58→20:31)
[2022-07-23] MEDS: Carbidopa/Levodopa 10-100 mg Tablet PO SCH ×4 (08:58→20:34)
[2022-07-23] MEDS: Amlodipine 5 MG TAB PO SCH (09:03)
[2022-07-23] MEDS: Lisinopril 10 MG TAB PO SCH (09:04)
[2022-07-23] MEDS: hydrALAZINE 25 MG TAB PO SCH ×2 (09:04→20:36)
[2022-07-23] MEDS ORDERED: hydrALAZINE 25 MG TAB PO SCH (16:00)
[2022-07-23] MEDS ORDERED: Amlodipine 5 MG TAB PO SCH (16:00)
[2022-07-23] MEDS: Atorvastatin Calcium 20 MG TAB PO SCH (20:32)
[2022-07-23] MEDS: Tamsulosin HCl 0.4 MG CAP PO SCH (20:32)
[2022-07-23] MEDS: Acetaminophen/Codeine 30-300mg Tablet PO PRN (20:33)
[2022-07-24] MEDS: Ketorolac Tromethamine 30 MG/ML VIAL IVP SCH ×2 (01:20→05:38)
[2022-07-24] MEDS: Dextrose 5 %-0.45 % NaCl 1,000 ML IV SCH ×2 (03:23→14:16)
[2022-07-24 06:16] LABS: Hemoglobin 9.9 g/dL (14.0-18.0); Mean Corpuscular HGB CONC 31.9 g/dL (32.0-36.0); Mean Corpuscular Volume 97.2 fl (78.0-98.0); Mean Platelet Volume 8.5 fL (7.4-10.4); Platelet Count 153 10x3/uL (130-400); RBC Distribution Width 12.7 % (11.5-14.5); Red Blood Cell (RBC) Count 3.19 mill/uL (4.70-6.10); White Blood Cell (WBC) Count 7.7 10x3/uL (4.8-10.8)
[2022-07-24 06:38] LABS: Anion Gap 15 mmol/L (10-20); BUN (Urea Nitrogen) 26 mg/dL (8.4-25.7); Calc. Creatinine Clearance 64 mL/min (70-130); Carbon Dioxide 21 mmol/L (23-31); Chloride 103 mmol/L (98-107); Estimated GFR 78; Glucose 121 mg/dL (83-110); Potassium 3.9 mmol/L (3.5-5.1); Sodium 135 mmol/L (136-145)
[2022-07-24] MEDS: Acetaminophen/Codeine 30-300mg Tablet PO PRN (09:30)
[2022-07-24] MEDS: Carbidopa/Levodopa 10-100 mg Tablet PO SCH ×4 (09:30→21:00)
[2022-07-24] MEDS: PARoxetine 20 MG TAB PO SCH (09:30)
[2022-07-24] MEDS: Aspirin 81 mg Enteric Coated Tablet PO SCH ×2 (09:31→21:01)
[2022-07-24] MEDS: Senokot S 8.6-50 MG TAB PO SCH ×2 (09:31→21:02)
[2022-07-24] MEDS: Amlodipine 5 MG TAB PO SCH (09:31)
[2022-07-24] MEDS: Ferrous Gluconate 324 MG TAB PO SCH ×2 (09:31→17:25)
[2022-07-24] MEDS: hydrALAZINE 25 MG TAB PO SCH ×2 (09:32→21:03)
[2022-07-24] MEDS: Finasteride 5 MG TAB PO SCH (09:32)
[2022-07-24] MEDS: Multivitamin W/ Minerals 1 TAB PO SCH (09:32)
[2022-07-24] MEDS: Entacapone 200 mg Tablet PO SCH ×4 (09:32→21:00)
[2022-07-24] MEDS: Cyanocobalamin (Vitamin B-12) 1,000 MCG TAB PO SCH (17:24)
[2022-07-24] MEDS: Tamsulosin HCl 0.4 MG CAP PO SCH (21:01)
[2022-07-24] MEDS: HYDROcodone/Acetaminophen 10/325 mg Tablet PO PRN (21:01)
[2022-07-24] MEDS: Atorvastatin Calcium 20 MG TAB PO SCH (21:01)
[2022-07-25] MEDS: Dextrose 5 %-0.45 % NaCl 1,000 ML IV SCH ×4 (03:03→20:26)
[2022-07-25 07:34] LABS: Hemoglobin 9.9 g/dL (14.0-18.0); Mean Corpuscular Hemoglobin 31.4 pg (27.0-31.0); Mean Corpuscular Volume 95.1 fl (78.0-98.0); Mean Platelet Volume 8.1 fL (7.4-10.4); Platelet Count 176 10x3/uL (130-400); RBC Distribution Width 12.6 % (11.5-14.5); Red Blood Cell (RBC) Count 3.16 mill/uL (4.70-6.10); White Blood Cell (WBC) Count 7.2 10x3/uL (4.8-10.8)
[2022-07-25 07:40] LABS: Anion Gap 13 mmol/L (10-20); BUN (Urea Nitrogen) 23 mg/dL (8.4-25.7); Calc. Creatinine Clearance 70 mL/min (70-130); Calcium 9.1 mg/dL (7.8-10.44); Carbon Dioxide 25 mmol/L (23-31); Chloride 101 mmol/L (98-107); Estimated GFR 87; Glucose 120 mg/dL (83-110); Potassium 3.8 mmol/L (3.5-5.1); Sodium 135 mmol/L (136-145)
[2022-07-25] MEDS: Senokot S 8.6-50 MG TAB PO SCH ×2 (09:11→20:19)
[2022-07-25] MEDS: Acetaminophen/Codeine 30-300mg Tablet PO PRN (09:12)
[2022-07-25] MEDS: Amlodipine 5 MG TAB PO SCH (09:12)
[2022-07-25] MEDS: Finasteride 5 MG TAB PO SCH (09:12)
[2022-07-25] MEDS: PARoxetine 20 MG TAB PO SCH (09:12)
[2022-07-25] MEDS: Multivitamin W/ Minerals 1 TAB PO SCH (09:13)
[2022-07-25] MEDS: Aspirin 81 mg Enteric Coated Tablet PO SCH ×2 (09:13→20:19)
[2022-07-25] MEDS: Ferrous Gluconate 324 MG TAB PO SCH ×2 (09:13→16:05)
[2022-07-25] MEDS: hydrALAZINE 25 MG TAB PO SCH ×2 (09:13→20:19)
[2022-07-25] MEDS: Entacapone 200 mg Tablet PO SCH ×4 (09:16→20:19)
[2022-07-25] MEDS: Carbidopa/Levodopa 10-100 mg Tablet PO SCH ×4 (09:16→20:19)
[2022-07-25] MEDS: Atorvastatin Calcium 20 MG TAB PO SCH (20:19)
[2022-07-25] MEDS: Tamsulosin HCl 0.4 MG CAP PO SCH (20:19)
[2022-07-26 05:50] LABS: Hemoglobin 9.8 g/dL (14.0-18.0); Mean Corpuscular HGB CONC 32.7 g/dL (32.0-36.0); Mean Corpuscular Hemoglobin 31.2 pg (27.0-31.0); Mean Corpuscular Volume 95.3 fl (78.0-98.0); Mean Platelet Volume 7.6 fL (7.4-10.4); Platelet Count 196 10x3/uL (130-400); RBC Distribution Width 12.5 % (11.5-14.5); Red Blood Cell (RBC) Count 3.14 mill/uL (4.70-6.10)
[2022-07-26 06:16] LABS: Anion Gap 10 mmol/L (10-20); BUN (Urea Nitrogen) 19 mg/dL (8.4-25.7); Calc. Creatinine Clearance 70 mL/min (70-130); Calcium 9.1 mg/dL (7.8-10.44); Carbon Dioxide 27 mmol/L (23-31); Chloride 101 mmol/L (98-107); Estimated GFR 87; Glucose 121 mg/dL (83-110); Potassium 3.4 mmol/L (3.5-5.1); Sodium 135 mmol/L (136-145)
[2022-07-26 08:51] VITALS: BP 165/83; TEMP 98.4
[2022-07-26] MEDS: PARoxetine 20 MG TAB PO SCH (09:14)
[2022-07-26] MEDS: Senokot S 8.6-50 MG TAB PO SCH ×2 (09:15→19:34)
[2022-07-26] MEDS: Acetaminophen/Codeine 30-300mg Tablet PO PRN (09:15)
[2022-07-26] MEDS: Ferrous Gluconate 324 MG TAB PO SCH ×2 (09:15→19:22)
[2022-07-26] MEDS: Aspirin 81 mg Enteric Coated Tablet PO SCH ×2 (09:15→19:34)
[2022-07-26] MEDS: hydrALAZINE 25 MG TAB PO SCH ×2 (09:16→19:34)
[2022-07-26] MEDS: Finasteride 5 MG TAB PO SCH (09:16)
[2022-07-26] MEDS: Multivitamin W/ Minerals 1 TAB PO SCH (09:16)
[2022-07-26] MEDS: Amlodipine 5 MG TAB PO SCH (09:16)
[2022-07-26] MEDS: Carbidopa/Levodopa 10-100 mg Tablet PO SCH ×4 (11:43→19:30)
[2022-07-26] MEDS: Entacapone 200 mg Tablet PO SCH ×4 (11:44→19:30)
[2022-07-26] MEDS: Dextrose 5 %-0.45 % NaCl 1,000 ML IV SCH ×2 (15:16→19:31)
[2022-07-26] MEDS: Atorvastatin Calcium 20 MG TAB PO SCH (19:34)
[2022-07-26] MEDS: Tamsulosin HCl 0.4 MG CAP PO SCH (19:34)
== END 2022-07-26 20:59 | DRG 470 ==
LOC: ERS 22:24 → ERHOLD 07-17 01:20 → 2NO 07-17 01:25 → T4-B 07-18 15:53 → SURG B 07-22 12:08
PROVIDERS: ADMIT Internal Medicine; ATTEND Internal Medicine
PROC: 0SRC0J9 Replacement of Right Knee Joint with Synthetic Substitute, Cemented, Open Approach (ICD-10-PCS; principal; 2022-07-22)
DX: M17.31 Unilateral post-traumatic osteoarthritis, right knee (principal); I16.1 Hypertensive emergency; M25.061 Hemarthrosis, right knee; Z20.822 Contact with and (suspected) exposure to COVID-19; E78.5 Hyperlipidemia, unspecified; K21.9 Gastro-esophageal reflux disease without esophagitis; G20 Parkinson's disease; I10 Essential (primary) hypertension; I16.0 Hypertensive urgency; R63.4 Abnormal weight loss; F32.A Depression, unspecified; R62.7 Adult failure to thrive; X58.XXXD Exposure to other specified factors, subsequent encounter; S82.141G Displaced bicondylar fracture of right tibia, subsequent encounter for closed fracture with delayed healing; Z87.891 Personal history of nicotine dependence; Z79.899 Other long term (current) drug therapy; Z68.22 Body mass index [BMI] 22.0-22.9, adult; Z79.82 Long term (current) use of aspirin
CPT/HCPCS: 36415; 36416; 70450; 80048; 85025; 85027; 87811; 93306; 96374; A4306; C1713; C1776; J1650; J1885; J2250; J2370; J2704; J2795; J3010; J3370; J3490; J7042; S0020

== ENCOUNTER 2023-03-16 19:17 | Outpatient (CLI) | payer MEDICARE, OTHER, SELFPAY | END 2023-03-16 19:18 | disposition home or self-care (01) | LOC: RAD 19:17 | PROVIDERS: ATTEND Physical Medicine & Rehabilitation | DX: S09.90XA Unspecified injury of head, initial encounter (principal); R90.82 White matter disease, unspecified | CPT/HCPCS: 70450 ==